=== PATIENT | male | born 1955 | race Caucasian/White ===

== ENCOUNTER → 2020-03-26 | Outpatient (CLI) | payer OTHER | LOC: KOH-I 14:12 | DX: M25.571 Pain in right ankle and joints of right foot (principal); M79.89 Other specified soft tissue disorders | CPT/HCPCS: 73610 ==

== ENCOUNTER → 2020-04-04 | Outpatient (CLI) | payer OTHER | LOC: MRI 09:16 | DX: M25.571 Pain in right ankle and joints of right foot (principal); G89.29 Other chronic pain; S86.021A Laceration of right Achilles tendon, initial encounter; X58.XXXA Exposure to other specified factors, initial encounter | CPT/HCPCS: 73721 ==